=== PATIENT | male | born 1935 | race Caucasian/White ===

== ENCOUNTER 2023-07-29 16:00 | Emergency (ER) | payer MEDICARE ==
[~2023-07-29] VITALS: Ht 170.2 cm; Wt 66.7 kg
[2023-07-29 16:58] LABS: BASOPHILS # (AUTO) 0.02 K/uL (0.00-0.20); BASOPHILS % (AUTO) 0.3 % (0.0-5.0); EOSINOPHILS # (AUTO) 0.17 K/uL (0.00-0.70); EOSINOPHILS % (AUTO) 2.6 % (0.0-8.0); HEMATOCRIT 35.4 % (42-54); IMMATURE GRANULOCYTE ABSOLUTE 0.02 K/uL (0-1); LYMPHOCYTES # (AUTO) 1.3 K/uL (1.0-4.8); LYMPHOCYTES % (AUTO) 20.5 % (21.0-51.0); MEAN CORPUSCULAR HEMOGLOBIN 29.6 pg (27.0-33.0); MEAN CORPUSCULAR HGB CONC 34.2 g/dL (32.0-36.0); MEAN CORPUSCULAR VOLUME 86.6 fL (79-99); MONOCYTES # (AUTO) 0.6 K/uL (0.1-1.0); MONOCYTES % (AUTO) 9.3 % (3.0-13.0); NEUTROPHILS # (AUTO) 4.4 K/uL (1.8-7.7); PLATELET COUNT (AUTO) 157 K/uL (130-400); RED BLOOD CELL COUNT(AUTO) 4.09 MIL/uL (4.50-6.20); RED CELL DISTRIBUTION WIDTH 12.3 % (11.0-15.5); WHITE BLOOD COUNT (AUTO) 6.5 K/uL (4.8-10.8)
[2023-07-29 17:07] LABS: SARS-CoV-2, RNA, NAAT NEGATIVE SARS CoV-2 (NEGATIVE)
[2023-07-29 17:08] LABS: CREATININE 1.2 mg/dL (0.5-1.5); POTASSIUM 3.6 mmol/L (3.5-5.1)
[2023-07-29 17:09] LABS: INFLUENZA TYPE A Negative For Type A (NEGATIVE); INFLUENZA TYPE B Negative For Type B (NEGATIVE)
[2023-07-29 17:18] LABS: ALBUMIN 3.6 g/dL (3.5-5.0); B-TYPE NATRIURETIC PEPTIDE 30 pg/mL (0-100); BILIRUBIN,TOTAL 0.2 mg/dL (0.2-1.0); TOTAL PROTEIN, SERUM 6.8 g/dL (6.0-8.3)
[2023-07-29 17:22] LABS: RAPID GROUP A STREP negative (NEGATIVE)
[2023-07-29] MEDS ORDERED: POTASSIUM BICARB/CIT AC 25 MEQ TABLET.EFF ONE (20:45)
[2023-07-29 20:49] LABS: ABG BASE EXCESS 4.7 mmol/L (-2.0-3.0); ABG HCO3 27.2 mmol/L (21.0-28.0); ABG OXYGEN SATURATION 96.7 % (95.0-99.0); ABG PCO2 34 mmHg (35-48); ABG PH 7.522 (7.35-7.450); CARBON MONOXIDE 0.6; HHb 3.3; PO2, ARTERIAL BG 81.5 mmHg (83.0-108.0); VENT MODE, BG ROOM AIR (ROOM AIR)
[2023-07-29 20:53] LABS: INR 0.96 (0.85-1.15); PROTHROMBIN TIME 11.2 SEC (9.6-11.6)
[2023-07-29 20:55] LABS: PARTIAL THROMBOPLASTIN TIME 28.2 SEC (26.3-35.5)
[2023-07-29] MEDS ORDERED: ACETAMINOPHEN WITH CODEINE 1 TAB TAB PO ONE (21:00)
[2023-07-29] MEDS ORDERED: FUROSEMIDE 40MG VIAL IV ONE (21:00)
[2023-07-29] MEDS ORDERED: POTASSIUM BICARB/CIT AC 25 MEQ TABLET.EFF PO ONE (21:00)
[2023-07-29] MEDS ORDERED: IOHEXOL 350 MG/ML 100ML INFUS..BTL IV ONE (21:55)
[2023-07-29 22:30] VITALS: BP 128/89; PULSE 79; RESP 20; O2SAT 96
[2023-08-07] MEDS ORDERED: HYD25 PO (16:14)
[2023-08-07] MEDS ORDERED: LEVO125T11 PO (16:14)
[2023-08-07] MEDS ORDERED: GUAI600T50 PO (16:14)
[2023-08-07] MEDS ORDERED: PANT40TA54 PO (16:14)
[2023-08-07] MEDS ORDERED: CITA10TA13 PO (16:14)
[2023-08-07] MEDS ORDERED: TRAZ-185 PO (16:14)
[2023-08-07] MEDS ORDERED: GABA600T10 PO (16:14)
[2023-08-07] MEDS ORDERED: FURO40TA5 PO (16:14)
[2023-08-07] MEDS ORDERED: POTA-364 PO (16:14)
== END 2023-07-29 23:27 | disposition home or self-care (01) ==
LOC: EDH 16:00
DX: J84.10 Pulmonary fibrosis, unspecified (principal); I10 Essential (primary) hypertension; Z20.822 Contact with and (suspected) exposure to COVID-19; Z98.890 Other specified postprocedural states; Z79.899 Other long term (current) drug therapy
CPT/HCPCS: 99285; 82435; 82947; 84484; 84132; 84295; 80053; 82803; 83880; 85025; 85378; 85610; 85730; 85018; 87880; 87804 ×2; 83605; 36415; 87635; 71045; 71275; 96374; 93005; 36600; C9803; J1940; Q9967

== ENCOUNTER 2023-08-12 12:39 | Emergency (ER) | payer MEDICARE ==
[~2023-08-12] VITALS: Ht 170.2 cm; Wt 63.5 kg
[~2023-08-12 12:39] MED LIST: CITA10TA13 PO; FURO40TA5 PO; GABA600T10 PO; GUAI600T50 PO; HYD25 PO; LEVO125T11 PO; PANT40TA54 PO; POTA-364 PO; TRAZ-185 PO
[2023-08-12 13:10] VITALS: BP 133/60; PULSE 98; RESP 18; O2SAT 96
== END 2023-08-12 13:37 | disposition home or self-care (01) ==
LOC: EDH 12:39
DX: T83.091A Other mechanical complication of indwelling urethral catheter, initial encounter (principal); I10 Essential (primary) hypertension; Z79.899 Other long term (current) drug therapy; Z98.890 Other specified postprocedural states; Y92.89 Other specified places as the place of occurrence of the external cause
CPT/HCPCS: 99281

== ENCOUNTER 2025-06-04 21:09 | Emergency (ER) | payer MEDICARE ==
[~2025-06-04] VITALS: Ht 172.7 cm; Wt 69.9 kg
[~2025-06-04 21:09] MED LIST changes: +BUDE0.5A3 IH; +CITA-107 PO; -CITA10TA13 PO; +FAMO20TA8 PO; +FURO40TA7 PO; +GABA300T28 PO; -GABA600T10 PO; -GUAI600T50 PO; -HYD25 PO; +LEVO-70 PO; +LEVO125C5 PO; -LEVO125T11 PO; +LISI5TAB21 PO; -PANT40TA54 PO; -POTA-364 PO; +POTA10CA95 PO; +SIME125C PO; +TAMS-55 PO; -TRAZ-185 PO; +VITA1CAP PO; +[UNRECOGNIZED DRUG - CODE] PO; +[UNRECOGNIZED DRUG - CODE] PO; +[UNRECOGNIZED DRUG - CODE] PO
[2025-06-04] MEDS ORDERED: FLUC100T PO (21:22)
[2025-06-04] MEDS ORDERED: CLOT15CR23 TP (21:25)
--- NOTE | 2025-06-04 21:27 | ERN ---
General Chief Complaint: Lower Extremity Pain/Injury Stated Complaint: C/O REDNESS TO LEFT LEG Time Seen by MD: 21:11 Source: patient History of Present Illness Initial Comments 89-year-old male who has a red rash circumferential around his left knee distal thigh proximal leg. He states that he has been wearing a leg brace there for the last two weeks and never took it off. The rash is non painful non swelling but is extremely itchy. Afebrile no fevers no chills no other systemic symptoms. No diabetes Timing/Duration: unsure Severity: moderate Allergies: Coded Allergies: No Known Drug Allergies (Unverified Allergy, Unknown, 05/05/22) Home Meds Active Scripts Levofloxacin (Levofloxacin) 500 Mg Tablet, 1 TAB PO DAILY for 7 Days, #7 TAB 0 Refills Prov:IMELDA MAYO SUPERVISOR RECORDS CHANGE 12/13/24 Furosemide (Lasix 40Mg Tab) 40 Mg Tablet, 20 MG PO DAILY, #60 TAB Prov:IMELDA MAYO SUPERVISOR RECORDS CHANGE 12/13/24 Famotidine (Famotidine) 20 Mg Tablet, 20 MG PO DAILY, #60 TAB Prov:IMELDA MAYO SUPERVISOR RECORDS CHANGE 12/13/24 Budesonide (Budesonide) 0.5 Mg/2 Ml Ampul.neb, 0.5 MG IH BIDRESP, #15 INHALER Prov:BRENTIMELDA SHARIF SUPERVISOR RECORDS CHANGE 12/13/24 Reported Medications Simethicone (Gas-X) 125 Mg Capsule, 1 CAP PO BID for 30 Days, #60 CAP 0 Refills 12/10/24 Vitamin E (Dl,Tocopheryl Acet) (Vitamin E) 450 Mg (1000 Unit) Capsule, 1 CAP PO DAILY for 30 Days, #30 CAP 0 Refills 12/10/24 Lisinopril (Lisinopril) 5 Mg Tablet, 1 TAB PO DAILY for 30 Days, #30 TAB 0 Refills 12/10/24 Furosemide (Furosemide) 40 Mg Tablet, 40 MG PO BID, TAB 12/10/24 Potassium Chloride (Potassium Chloride) 10 Meq Capsule.er, 20 MEQ PO BID, CAP 01/05/24 Activated Charcoal (Charcocaps) 260 Mg Capsule, 260 MG PO DAILY, CAP 01/03/24 Vitamin B Complex (B Complex) 1 Cap Capsule, 1 CAP PO DAILY, CAP 01/03/24 Ascorbic Acid (Vitamin C with Ritu Hips) 1,000 Mg Capsule, 1000 MG PO DAILY, CAP 01/03/24 Tamsulosin HCl (Flomax) 0.4 Mg Cap.er.24h, 0.4 MG PO TID, CAPSULE.DR 01/03/24 Citalopram Hydrobromide (Citalopram HBr) 20 Mg Tablet, 20 MG PO DAILY, TAB 01/03/24 Gabapentin (Gabapentin ER) 300 Mg Tab.er.24h, 300 MG PO TID, TAB 01/03/24 Levothyroxine Sodium (Levothyroxine) 125 Mcg Capsule, 125 MCG PO DAILY, CAP 01/03/24 Past Medical History Past Medical History: Hypertension Medical History Other: RIGHT VENTRICULAR HEART FAILURE Past Surgical History: Other Surgical History Other: KNEE SURGERY ROS Dictation Review of systems is otherwise negative beyond what is in the chief complaint. Physical Exam Skin Comment Left knee distal thigh proximal leg has a circumferential redness with some areas of excoriation. The borders of the rash are sharp with a few petechial areas proximally. No swelling minimal warmth distal circulation intact. MDM The rash appears to be a yeast infection from trapped moist her underneath his knee wrap that he has worn continuously for the last 1-2 weeks. ED Course Vital Signs Date Time Temp Pulse Resp B/P (MAP) Pulse Ox O2 Delivery O2 Flow Rate FiO2 06/04/25 21:12 98.1 73 20 145/81 96 DX & DISP Disposition: Discharge Departure Impression: Primary Impression: Yeast infection of the skin Condition: Stable Scripts Clotrimazole (Clotrimazole) 1 % Cream..g. 1 APPL TP BID for 7 Days, #15 GM 0 Refills apply to affected area(s) Prov: ALEJANDRA BACA MD 06/04/25 Additional Instructions: I believe you have a yeast infection in the skin on your left knee from prolonged trapping of moist her against the skin moisture wearing her knee brace continuously. I am prescribing a cream to clear the yeast infection. It should clear up in the next week or so if it does not please see your primary care physician. If the area becomes red and you see red streaks going up her arm and your concerned about a bacterial infection please come back to the emergency room. Referrals: SHMUEL OCONNELL (PCP) ALEJANDRA BACA MD Jun 04, 2025 21:27
[2025-06-04 21:58] VITALS: BP 139/76; PULSE 79; RESP 18; TEMP 98.2; O2SAT 98
== END 2025-06-04 22:02 | disposition home or self-care (01) ==
LOC: EDH 21:09
DX: B37.2 Candidiasis of skin and nail (principal); I11.0 Hypertensive heart disease with heart failure; I50.810 Right heart failure, unspecified; Z79.890 Hormone replacement therapy; Z79.899 Other long term (current) drug therapy
CPT/HCPCS: 99282

== ENCOUNTER 2025-06-07 22:24 | Emergency (ER) | payer MEDICARE ==
[~2025-06-07] VITALS: Ht 170.2 cm; Wt 74.8 kg
[~2025-06-07 22:24] MED LIST changes: +CLOT15CR23 TP
--- NOTE | 2025-06-07 22:30 | NUR ---
UA CUP PROVIDED
[2025-06-08 00:19] LABS: CREATININE 1.2 mg/dL (0.5-1.3); GLOMERULAR FILTR. RATE CALC 58.0 mL/min (>90); GLUCOSE,RANDOM 117.0 mg/dL (70-105); SODIUM SERUM 137.0 mmol/L (136-145); UREA NITROGEN, BLOOD 22.0 mg/dL (7-18)
[2025-06-08 00:21] LABS: IMMATURE GRANULOCYTE ABSOLUTE 0.03 K/uL (0-1); NUCLEATED RED BLOOD CELLS 0.0 % (0.0-0.19); PLATELET COUNT (AUTO) 177 K/uL (130-400); RED BLOOD CELL COUNT(AUTO) 4.06 MIL/uL (4.50-6.20); RED CELL DISTRIBUTION WIDTH 13.2 % (11.0-15.5); WHITE BLOOD COUNT (AUTO) 8.4 K/uL (4.8-10.8)
--- NOTE | 2025-06-08 00:23 | ERN ---
ED Note History of Present Illness Stated Complaint: RASH TO GROIN Chief Complaint: Skin Rash/Abscess Time Seen by MD: 22:31 Time Seen by Midlevel: 22:31 Dictation: The patient is a 89-year-old male with a history of hypertension who presents to the emergency department with complaints of rash to groin area and left knee. Patient reports he was this past week for similar symptoms and was diagnosed with a fungal infection and started on clotrimazole topical. Allergies: Coded Allergies: No Known Drug Allergies (Unverified Allergy, Unknown, 05/05/22) Home Meds Active Scripts Clotrimazole (Clotrimazole) 1 % Cream..g., 1 APPL TP BID for 7 Days, #15 GM 0 Refills apply to affected area(s) Prov:ALEJANDRA BACA MD 06/04/25 Levofloxacin (Levofloxacin) 500 Mg Tablet, 1 TAB PO DAILY for 7 Days, #7 TAB 0 Refills Prov:IMELDA MAYO FARM INSTRUCTOR 12/13/24 Furosemide (Lasix 40Mg Tab) 40 Mg Tablet, 20 MG PO DAILY, #60 TAB Prov:IMELDA MAYO FARM INSTRUCTOR 12/13/24 Famotidine (Famotidine) 20 Mg Tablet, 20 MG PO DAILY, #60 TAB Prov:IMELDA MAYO FARM INSTRUCTOR 12/13/24 Budesonide (Budesonide) 0.5 Mg/2 Ml Ampul.neb, 0.5 MG IH BIDRESP, #15 INHALER Prov:IMELDA MAYO APRN 12/13/24 Reported Medications Simethicone (Gas-X) 125 Mg Capsule, 1 CAP PO BID for 30 Days, #60 CAP 0 Refills 12/10/24 Vitamin E (Dl,Tocopheryl Acet) (Vitamin E) 450 Mg (1000 Unit) Capsule, 1 CAP PO DAILY for 30 Days, #30 CAP 0 Refills 12/10/24 Lisinopril (Lisinopril) 5 Mg Tablet, 1 TAB PO DAILY for 30 Days, #30 TAB 0 Refills 12/10/24 Furosemide (Furosemide) 40 Mg Tablet, 40 MG PO BID, TAB 12/10/24 Potassium Chloride (Potassium Chloride) 10 Meq Capsule.er, 20 MEQ PO BID, CAP 01/05/24 Activated Charcoal (Charcocaps) 260 Mg Capsule, 260 MG PO DAILY, CAP 01/03/24 Vitamin B Complex (B Complex) 1 Cap Capsule, 1 CAP PO DAILY, CAP 01/03/24 Ascorbic Acid (Vitamin C with Ritu Hips) 1,000 Mg Capsule, 1000 MG PO DAILY, CAP 01/03/24 Tamsulosin HCl (Flomax) 0.4 Mg Cap.er.24h, 0.4 MG PO TID, CAPSULE. 01/03/24 Citalopram Hydrobromide (Citalopram HBr) 20 Mg Tablet, 20 MG PO DAILY, TAB 01/03/24 Gabapentin (Gabapentin ER) 300 Mg Tab.er.24h, 300 MG PO TID, TAB 01/03/24 Levothyroxine Sodium (Levothyroxine) 125 Mcg Capsule, 125 MCG PO DAILY, CAP 01/03/24 Past Medical History Past Medical History: Hypertension Additional Past Medical Hx: RIGHT VENTRICULAR HEART FAILURE Surgical History: Other Surgical History Other: KNEE SURGERY RN Note Reviewed/Agreed w/PFSH: Yes Review of System Dictation Constitutional: Negative for fever,chills, and weight loss Eyes: Negative for injury, pain,redness, and discharge ENT: Negative for injury,pain or swelling Cardiovascular: Negative for chest pain, palpitations, and edema Respiratory: Negative for shortness of breath, cough, and wheezing, Abdomen/GI: Negative for abdominal pain, nausea, vomiting, diarrhea, and constipation Back: Negative for injury and pain : Negative for injury, bleeding and discharge MS/Extremity: Negative for injury and deformity Skin: Negative for discoloration positive for rash Neuro: Negative for headache, weakness, numbness, tingling, and seizure Psych: Negative for suicide ideation, homicidal ideation, and hallucinations Initial Vital Sign VS Vital Signs Date Time Temp Pulse Resp B/P (MAP) Pulse Ox O2 Delivery O2 Flow Rate FiO2 06/07/25 22:26 98.2 98 20 166/90 96 Room Air Physical Exam Dictation Vital Signs reviewed General Appearance: Alert, oriented x 3, no acute distress, well developed, nourished. Head and Face: non-traumatic. Eyes: PERRL, pink conjunctivas, eyelid no trauma, anterior chamber with arcus senilis. Ears: Pinnas intact and no signs of trauma or erythema ear canals clear and no discharge TM no erythema Nose: No discharge, no bleeding. Oropharynx: Mouth normal, tongue pink. pharynx clear,no erythema, tonsils no exudates, no abscesses noted, mucous membrane moist Neck: Supple, non-tender, no thyromegaly, no masses, no JVD, no bruits Breast:Deferred Chest:No tenderness, no crepitus, no paradoxical movement, no retractions Lungs:Clear, well-ventilated, symmetric, no rales, no wheezing, no rhonchi, no stridor, good breath sounds bilaterally Heart: Regular rate, regular rhythm, no murmur, no gallops Vascular: no peripheral edema, Abdomen: Soft, positive bowel sounds, nondistended, no guarding, nontender, no rebound, no masses no hepatomegaly, no splenomegaly, no Cannon's sign, no hernias. Rectal: Deferred Genital: Erythema and tenderness to scrotum, groin area no drainage, Neurological: Normal speech, motor function intact, sensory function intact Musculoskeletal: Neck nontender, full range of motion, back nontender, full range of motion, Extremities: nontender, full range of motion left knee with erythema and patchy dry scabbing, no bleeding, no drainage Skin: Color pink, dry, no turgor, no rash, no lacerations, no abrasions, no contusions. Lymphatic: Deferred Results (Laboratory/Radiology) Laboratory/Radiology Laboratory Tests Test 06/07/25 23:57 White Blood Count 8.4 K/uL (4.8-10.8) Red Blood Count 4.06 MIL/uL (4.50-6.20) L Hemoglobin 12.6 g/dL (14.0-18.0) L Hematocrit 37.7 % (42-54) L Mean Corpuscular Volume 92.9 fL (79-99) Mean Corpuscular Hemoglobin 31.0 pg (27.0-33.0) Mean Corpuscular Hemoglobin Concent 33.4 g/dL (32.0-36.0) Red Cell Distribution Width 13.2 % (11.0-15.5) Platelet Count 177 K/uL (130-400) Mean Platelet Volume 10.9 fL (7.5-10.5) H Immature Granulocyte % (Auto) 0.4 % (0-1) Neutrophils (%) (Auto) 77.2 % (40.0-77.0) H Lymphocytes (%) (Auto) 9.9 % (21.0-51.0) L Monocytes (%) (Auto) 11.4 % (3.0-13.0) Eosinophils (%) (Auto) 1.0 % (0.0-8.0) Basophils (%) (Auto) 0.1 % (0.0-5.0) Neutrophils # (Auto) 6.5 K/uL (1.8-7.7) Lymphocytes # (Auto) 0.8 K/uL (1.0-4.8) L Monocytes # (Auto) 1.0 K/uL (0.1-1.0) Eosinophils # (Auto) 0.08 K/uL (0.00-0.70) Basophils # (Auto) 0.01 K/uL (0.00-0.20) Absolute Immature Granulocyte (auto 0.03 K/uL (0-1) Nucleated Red Blood Cells 0.0 % (0.0-0.19) Sodium Level 137 mmol/L (136-145) Potassium Level 5.3 mmol/L (3.5-5.1) H Chloride Level 103 mmol/L (101-111) Carbon Dioxide Level 31 mmol/L (21-32) Blood Urea Nitrogen 22 mg/dL (7-18) H Creatinine 1.2 mg/dL (0.5-1.3) Glomerular Filtration Rate Calc 58 mL/min (>90) Random Glucose 117 mg/dL (70-105) H Total Calcium 9.3 mg/dL (8.5-10.1) Labs Reviewed?: Yes EKG: (+) rhythm (Sinus rhythm) EKG Comment: Date:06/08/2025 Time:0110 Ventricular rate:94 WV interval:134 QRS duration:82 QT/QTc:375/469 EKG interpretation: Sinus rhythm Reviewed by ED Attending STEMI ED Course ED Course Orders Procedure Category Date Status Time Cbc With Differential LAB 06/07/25 In Process 23:29 Basic Metabolic Panel LAB 06/07/25 Complete 23:29 12 Lead Ekg Tracing- EKG 06/08/25 Complete Technical 01:08 Na Zircon PHA 06/08/25 In Process Cyclosil-Lokelma 10g 01:30 Current Medications Medications (Trade) Dose Ordered Sig/Dandre Route PRN Reason Start Time Stop Time Status Last Admin Dose Admin Sodium Zirconium Cyclosilicate (Lokelma 10gm Powder) 10 gm ONCE ONCE PO 06/08/25 01:30 06/08/25 01:31 Vital Signs Date Time Temp Pulse Resp B/P (MAP) Pulse Ox O2 Delivery O2 Flow Rate FiO2 06/07/25 22:26 98.2 98 20 166/90 96 Room Air Medical Decision Making MDM The patient is a 89-year-old male with a history of hypertension who presents to the emergency department with complaints of rash to groin area and left knee. Patient reports he was this past week for similar symptoms and was diagnosed with a fungal infection and started on clotrimazole topical. CBC showed no leukocytosis, mild normocytic anemia, chemistry showed mild hypokalemia, creatinine of 1.2. On physical exam patient appears to have a fungal infection to his left knee which he had last week and has now progressed to his groin area. Patient reports that his left knee is getting better. We will discharge patient on antifungal p.o.. Patient instructed to follow up with PCP. Patient does wear brief and has not incontinence which increases moisture. Patient educated on proper hygiene and avoiding moisture to that area. On physical exam patient is in no acute distress. Nontoxic appearance. Patient was evaluated by Dr. Lambert who reports that his leg fungal infection is improving. Differential diagnosis: Cellulitis, abrasion, fungal infection Need for hospitalization: Patient does not meet criteria for hospitalization. There are no social concerns with this patient. DX & DISP Disposition: Discharge Departure Impression: Primary Impression: Yeast infection of the skin Additional Impression: Hyperkalemia Condition: Stable Scripts Fluconazole (Fluconazole) 200 Mg Tablet 1 TAB PO QWEEK for 14 Days, #2 TAB 0 Refills Prov: LADARIUS DICKENS PALLIATIVE CARE NURSE 06/08/25 Additional Instructions: Please follow up with your primary doctor in 1-2 days. They will need to monitor your potassium. Take your medications as prescribed. Avoid any excessive moisture to the area. Keep it clean and dry. FOLLOW-UP WITH PRIMARY CARE PROVIDER IN 1 TO 2 DAYS. TAKE MEDICATIONS DIRECTED HERE IN THE EMERGENCY ROOM. OKAY TO CONTINUE HOME MEDICATIONS UNLESS OTHERWISE DISCUSSED DURING YOUR VISIT IN THE EMERGENCY ROOM TODAY. RETURN TO YOUR NEAREST EMERGENCY ROOM IF SYMPTOMS WORSEN OR IF THERE IS NO IMPROVEMENT. CALL 911 IF YOU NEED IMMEDIATE ASSISTANCE. TAKE TYLENOL [id number] NEEDED AND IF NO CONTRAINDICATIONS ARE PRESENT. INCREASE ORAL HYDRATION. A WOUND CULTURE OR URINE CULTURE WAS ORDERED HERE IN THE EMERGENCY ROOM DEPARTMENT PLEASE FOLLOW-UP WITH PRIMARY CARE PROVIDER AND ADVISE THEM TO GET REPEAT PORTS FROM OUR FACILITY. IF YOU HAD ANY JOHNATHAN WRAP/SPLINTS THAT WERE APPLIED HERE, PLEASE DO NOT REMOVE THEM UNTIL YOU SEE YOUR PRIMARY CARE OR SPECIALTY. Referrals: SHMUEL OCONNELL (PCP) Time of Disposition: 01:30 I have examined patient, & reviewed all documents, & agreed W/ the Diagnosis, and Plan LADARIUS DICKENS PALLIATIVE CARE NURSE Jun 08, 2025 00:23
--- NOTE | 2025-06-08 01:14 | EKG ---
[facility] Test Date: 2025-06-08 Test Time: 01:10:30 Pat Name: EFREN FISHER Department: [facility] Room: Gender: M Music Library Assistant: [id number] Requested By: LADARIUS DICKENS Order Number: [id number] Reading MD: Arya Mitchell Measurements Intervals [place] Rate: 94 P: 36 MI: 134 QRS: -25 QRSD: 82 T: 60 QT: 375 QTc: 469 Interpretive Statements Sinus rhythm Atrial premature complex Compared to ECG 12/10/2024 08:40:34 Atrial premature complex(es) now present Ventricular premature complex(es) no longer present Left-axis deviation no longer present Electronically Signed On 06-08-2025 11:08:57 CDT by Arya Mitchell Please click the below link to view image of tracing.
--- NOTE | 2025-06-08 01:24 | NUR ---
PT CALLED, NO ANSWER
[2025-06-08] MEDS: NA ZIRCON CYCLOSIL(LOKELMA 10GM) PO ONE (01:36)
[2025-06-08] MEDS ORDERED: FLUC200T96 PO (01:45)
[2025-06-08 01:52] VITALS: BP 160/94; PULSE 90; RESP 18; TEMP 98.2; O2SAT 97
== END 2025-06-08 02:07 | disposition home or self-care (01) ==
LOC: EDH 22:24
DX: B37.2 Candidiasis of skin and nail (principal); E87.5 Hyperkalemia; I11.0 Hypertensive heart disease with heart failure; I50.810 Right heart failure, unspecified; Z79.899 Other long term (current) drug therapy
CPT/HCPCS: 36415; 80048; 85025; 93005; 99284

== ENCOUNTER 2025-06-11 10:10 | Emergency (ER) | payer MEDICARE ==
[~2025-06-11] VITALS: Ht 165.1 cm; Wt 68.3 kg
[~2025-06-11 10:10] MED LIST changes: +FLUC200T96 PO
[2025-06-11 10:12] VITALS: BP 152/91; PULSE 88; RESP 18; TEMP 97.6
--- NOTE | 2025-06-11 10:22 | ERN ---
ED Note History of Present Illness Stated Complaint: RASH Chief Complaint: Skin Rash/Abscess Time Seen by MD: 10:12 Dictation: PATIENT IS AN 89-YEAR-OLD MALE HERE WITH COMPLAINTS OF A RASH HE HAS HAD FOR THE LAST SEVERAL WEEKS. NO FEVER NO CHILLS. THE RASH IS ON HIS LEFT ANTERIOR KNEE IN HIS GROIN. HE STATES THE ONE TO HIS KNEE STARTED AFTER HE WAS USE NECK COMPRESSION DEVICE TO HIS KNEE SEVERAL WEEKS AGO. THE KNEE IS ERYTHEMATOUS IN VERY STAGES OF FEELING WITH SOME EXCORIATION NOTED. HE HAS ALREADY BEEN TO THE EMERGENCY ROOM TWICE AND WAS TREATED FOR A FUNGAL INFECTION HOWEVER STATES HE IS NOT GETTING RELIEF. HE DENIES FEVER CHILLS STATES HE IS NOT A DIABETIC. THE RASH IS PAINLESS I HAD ENCOURAGED PATIENT TO FOLLOW UP WITH HIS PRIMARY CARE DOCTOR AFTER BEING DISCHARG[place] [facility] [place] SINCE IT WOULD BE 3RD VISIT TO THE EMERGENCY ROOM. Allergies: Coded Allergies: No Known Drug Allergies (Unverified Allergy, Unknown, 05/05/22) Home Meds Active Scripts Fluconazole (Fluconazole) 200 Mg Tablet, 1 TAB PO QWEEK for 14 Days, #2 TAB 0 Refills Prov:LADARIUS DICKENS CUSTOMER TRAINING SPECIALIST 06/08/25 Clotrimazole (Clotrimazole) 1 % Cream..g., 1 APPL TP BID for 7 Days, #15 GM 0 Refills apply to affected area(s) Prov:ALEJANDRA BACA MD 06/04/25 Levofloxacin (Levofloxacin) 500 Mg Tablet, 1 TAB PO DAILY for 7 Days, #7 TAB 0 Refills Prov:IMELDA MAYO PERSONNEL CLERK 12/13/24 Furosemide (Lasix 40Mg Tab) 40 Mg Tablet, 20 MG PO DAILY, #60 TAB Prov:IMELDA MAYO PERSONNEL CLERK 12/13/24 Famotidine (Famotidine) 20 Mg Tablet, 20 MG PO DAILY, #60 TAB Prov:IMELDA MAYO PERSONNEL CLERK 12/13/24 Budesonide (Budesonide) 0.5 Mg/2 Ml Ampul.neb, 0.5 MG IH BIDRESP, #15 INHALER Prov:IMELDA MAYO APRN 12/13/24 Reported Medications Simethicone (Gas-X) 125 Mg Capsule, 1 CAP PO BID for 30 Days, #60 CAP 0 Refills 12/10/24 Vitamin E (Dl,Tocopheryl Acet) (Vitamin E) 450 Mg (1000 Unit) Capsule, 1 CAP PO DAILY for 30 Days, #30 CAP 0 Refills 12/10/24 Lisinopril (Lisinopril) 5 Mg Tablet, 1 TAB PO DAILY for 30 Days, #30 TAB 0 Refills 12/10/24 Furosemide (Furosemide) 40 Mg Tablet, 40 MG PO BID, TAB 12/10/24 Potassium Chloride (Potassium Chloride) 10 Meq Capsule.er, 20 MEQ PO BID, CAP 01/05/24 Activated Charcoal (Charcocaps) 260 Mg Capsule, 260 MG PO DAILY, CAP 01/03/24 Vitamin B Complex (B Complex) 1 Cap Capsule, 1 CAP PO DAILY, CAP 01/03/24 Ascorbic Acid (Vitamin C with Ritu Hips) 1,000 Mg Capsule, 1000 MG PO DAILY, CAP 01/03/24 Tamsulosin HCl (Flomax) 0.4 Mg Cap.er.24h, 0.4 MG PO TID, CAPSULE.DR 01/03/24 Citalopram Hydrobromide (Citalopram HBr) 20 Mg Tablet, 20 MG PO DAILY, TAB 01/03/24 Gabapentin (Gabapentin ER) 300 Mg Tab.er.24h, 300 MG PO TID, TAB 01/03/24 Levothyroxine Sodium (Levothyroxine) 125 Mcg Capsule, 125 MCG PO DAILY, CAP 01/03/24 Past Medical History Past Medical History: Hypertension Additional Past Medical Hx: RIGHT VENTRICULAR HEART FAILURE Surgical History: Other Surgical History Other: KNEE SURGERY RN Note Reviewed/Agreed w/PFSH: Yes Review of System Dictation CONSTITUTIONAL: NEGATIVE EXCEPT FOR HPI HEAD/FACE: NEGATIVE EXCEPT FOR HPI EENT: NEGATIVE EXCEPT FOR HPI RESPIRATORY: NEGATIVE EXCEPT FOR HPI GASTROINTESTINAL/ABDOMINAL: NEGATIVE EXCEPT FOR HPI GENITOURINARY: NEGATIVE EXCEPT FOR HPI MUSCULOSKELETAL: NEGATIVE EXCEPT FOR HPI INTEGUMENTARY: NEGATIVE EXCEPT FOR HPI RASH TO GROIN AND LEFT KNEE NEUROLOGICAL/PSYCH: NEGATIVE EXCEPT FOR HPI HEMATOLOGIC/LYMPHATIC: NEGATIVE EXCEPT FOR HPI ALL SYSTEMS NEGATIVE, EXCEPT NOTED ABOVE. 13 POINT REVIEW OF SYSTEMS ASSESSED AND ALL NEGATIVE EXCEPT FOR ABOVE. Initial Vital Sign VS Vital Signs Date Time Temp Pulse Resp B/P (MAP) Pulse Ox O2 Delivery O2 Flow Rate FiO2 06/11/25 10:12 97.5 88 18 152/91 98 Room Air 0 Physical Exam Dictation VITAL SIGNS REVIEWED GENERAL APPEARANCE: ALERT, ORIENTED X 3, NO ACUTE DISTRESS, WELL DEVELOPED, NOURISHED. NO PAIN HEAD AND FACE: NON-TRAUMATIC. EYES: PERRL, PINK CONJUNCTIVAS, EYELID NO TRAUMA, ANTERIOR CHAMBER WITH ARCUS SENILIS. EARS: PINNAS INTACT AND NO SIGNS OF TRAUMA OR ERYTHEMA EAR CANALS CLEAR AND NO DISCHARGE TM NO ERYTHEMA NOSE: NO DISCHARGE, NO BLEEDING. OROPHARYNX: MOUTH NORMAL, TONGUE PINK, PHARYNX CLEAR,NO ERYTHEMA, TONSILS NO EXUDATES, NO ABSCESSES NOTED, MUCOUS MEMBRANE MOIST NECK: SUPPLE, NON-TENDER, NO THYROMEGALY, NO MASSES, NO JVD, NO BRUITS BREAST:DEFERRED CHEST:NO TENDERNESS, NO CREPITUS, NO PARADOXICAL MOVEMENT, NO RETRACTIONS LUNGS:CLEAR, WELL-VENTILATED, SYMMETRIC, NO RALES, NO WHEEZING, NO RHONCHI, NO STRIDOR, GOOD BREATH SOUNDS BILATERALLY HEART: REGULAR RATE, REGULAR RHYTHM, NO MURMUR, NO GALLOPS VASCULAR: NO PERIPHERAL EDEMA, ABDOMEN: SOFT, POSITIVE BOWEL SOUNDS, NONDISTENDED, NO GUARDING, NONTENDER, NO REBOUND, NO MASSES NO HEPATOMEGALY, NO SPLENOMEGALY, NO MCDONOUGH'S S IGN, NO HERNIAS. RECTAL: DEFERRED GENITAL: SCROTUM WITH A EXCORIATION AND CLEAR DRAINAGE. PAINFUL NEUROLOGICAL: NORMAL SPEECH, MOTOR FUNCTION INTACT, SENSORY FUNCTION INTACT MUSCULOSKELETAL: NECK NONTENDER, FULL RANGE OF MOTION, BACK NONTENDER, FULL RANGE OF MOTION, EXTREMITIES: RIGHT KNEE FROM DISTAL THIGH DOWN TO MID TIBIAL AREA WITH ERYTHEMA EXCORIATION. NONTENDER DOES NOT HAVE ANY PUSTULES PAINLESS SKIN: COLOR PINK, DRY, NO TURGOR, NO RASH, NO LACERATIONS, NO ABRASIONS, NO CONTUSIONS. LYMPHATIC: DEFERRED Results (Laboratory/Radiology) Laboratory/Radiology Laboratory Tests Test 06/11/25 10:30 White Blood Count 6.6 K/uL (4.8-10.8) Red Blood Count 4.09 MIL/uL (4.50-6.20) L Hemoglobin 12.6 g/dL (14.0-18.0) L Hematocrit 37.9 % (42-54) L Mean Corpuscular Volume 92.7 fL (79-99) Mean Corpuscular Hemoglobin 30.8 pg (27.0-33.0) Mean Corpuscular Hemoglobin Concent 33.2 g/dL (32.0-36.0) Red Cell Distribution Width 13.0 % (11.0-15.5) Platelet Count 185 K/uL (130-400) Mean Platelet Volume 10.4 fL (7.5-10.5) Immature Granulocyte % (Auto) 0.2 % (0-1) Neutrophils (%) (Auto) 73.5 % (40.0-77.0) Lymphocytes (%) (Auto) 16.5 % (21.0-51.0) L Monocytes (%) (Auto) 7.3 % (3.0-13.0) Eosinophils (%) (Auto) 2.3 % (0.0-8.0) Basophils (%) (Auto) 0.2 % (0.0-5.0) Neutrophils # (Auto) 4.9 K/uL (1.8-7.7) Lymphocytes # (Auto) 1.1 K/uL (1.0-4.8) Monocytes # (Auto) 0.5 K/uL (0.1-1.0) Eosinophils # (Auto) 0.15 K/uL (0.00-0.70) Basophils # (Auto) 0.01 K/uL (0.00-0.20) Absolute Immature Granulocyte (auto 0.01 K/uL (0-1) Nucleated Red Blood Cells 0.0 % (0.0-0.19) Sodium Level 139 mmol/L (136-145) Potassium Level 4.3 mmol/L (3.5-5.1) Chloride Level 102 mmol/L (101-111) Carbon Dioxide Level 31 mmol/L (21-32) Blood Urea Nitrogen 24 mg/dL (7-18) H Creatinine 1.1 mg/dL (0.5-1.3) Glomerular Filtration Rate Calc 64 mL/min (>90) Random Glucose 170 mg/dL (70-105) H Total Calcium 9.6 mg/dL (8.5-10.1) Labs Reviewed?: Yes ED Course ED Course Orders Procedure Category Date Status Time Cbc With Differential LAB 06/11/25 Complete 10:19 Basic Metabolic Panel LAB 06/11/25 Complete 10:19 Vital Signs Date Time Temp Pulse Resp B/P (MAP) Pulse Ox O2 Delivery O2 Flow Rate FiO2 06/11/25 10:12 97.5 88 18 152/91 98 Room Air 0 1125/SPOKE WITH PATIENT IN HIS ON THE TELEPHONE. HE LEFT AND SAID HE WAS H A AN APPOINTMENT WITH HIS PRIMARY CARE DOCTOR, THIS AFTERNOON. Medical Decision Making MDM MEDICAL DISCHARGE MAKING BASED ON PHYSICAL EXAMINATION AND LABS TO INCLUDE CBC AND BMP. PATIENT HAS A NORMAL WBCS GLUCOSE IS 170 AND PATIENT IS LIKELY A DIABETIC HOWEVER HE IS UNAWARE OF THIS. PATIENT LEFT WITHOUT PROPER DISCHARGE IN HIS GOING TO FOLLOW UP WITH HIS DOCTOR THIS AFTERNOON. DX & DISP Disposition: Discharge Departure Impression: Primary Impression: Dermatitis Additional Impression: Candidiasis of scrotum Condition: Stable Additional Instructions: FOLLOW-UP WITH PRIMARY CARE PROVIDER IN 1 TO 2 DAYS. TAKE MEDICATIONS DIRECTED HERE IN THE EMERGENCY ROOM. OKAY TO CONTINUE HOME MEDICATIONS UNLESS OTHERWISE DISCUSSED DURING YOUR VISIT IN THE EMERGENCY ROOM TODAY. RETURN TO YOUR NEAREST EMERGENCY ROOM IF SYMPTOMS WORSEN OR IF THERE IS NO IMPROVEMENT. CALL 911 IF YOU NEED IMMEDIATE ASSISTANCE. TAKE TYLENOL OR MOTRIN O [id number] NEEDED AND IF NO CONTRAINDICATIONS ARE PRESENT. INCREASE ORAL HYDRATION. A WOUND CULTURE OR URINE CULTURE WAS ORDERED HERE IN THE EMERGENCY ROOM DEPARTMENT PLEASE FOLLOW-UP WITH PRIMARY CARE PROVIDER AND ADVISE THEM TO GET REPEAT PORTS FROM OUR FACILITY. IF YOU HAD ANY JOHNATHAN WRAP/SPLINTS THAT WERE APPLIED HERE, PLEASE DO NOT REMOVE THEM UNTIL YOU SEE YOUR PRIMARY CARE OR SPECIALTY. KEEP YOUR APPOINTMENT WITH YOUR PRIMARY CARE DOCTOR. CONTINUE MEDICATIONS PRESCRIBED IN THE EMERGENCY ROOM ON YOUR LAST TWO VISITS. STRONGLY RECOMMEND A REFERRAL TO DERMATOLOGY FOR MANAGEMENT Referrals: SHMUEL OCONNELL (PCP) I have reviewed the case, and I agree with, Diagnosis and Plan SAIMA MEADOWS NP Jun 11, 2025 10:22
[2025-06-11 10:46] LABS: IMMATURE GRANULOCYTE ABSOLUTE 0.01 K/uL (0-1); NUCLEATED RED BLOOD CELLS 0.0 % (0.0-0.19); PLATELET COUNT (AUTO) 185 K/uL (130-400); RED BLOOD CELL COUNT(AUTO) 4.09 MIL/uL (4.50-6.20); RED CELL DISTRIBUTION WIDTH 13.0 % (11.0-15.5); WHITE BLOOD COUNT (AUTO) 6.6 K/uL (4.8-10.8)
[2025-06-11 10:54] LABS: CREATININE 1.1 mg/dL (0.5-1.3); GLOMERULAR FILTR. RATE CALC 64.0 mL/min (>90); GLUCOSE,RANDOM 170.0 mg/dL (70-105); SODIUM SERUM 139.0 mmol/L (136-145); UREA NITROGEN, BLOOD 24.0 mg/dL (7-18)
--- NOTE | 2025-06-11 11:24 | NUR ---
PT STATED HE WOULD SEE HIS PRIMARY MD, DR HERZOG
== END 2025-06-11 11:31 | disposition left against medical advice (07) ==
LOC: EDH 10:10
DX: L30.9 Dermatitis, unspecified (principal); B37.49 Other urogenital candidiasis; I11.0 Hypertensive heart disease with heart failure; I50.810 Right heart failure, unspecified; Z79.890 Hormone replacement therapy; Z79.899 Other long term (current) drug therapy
CPT/HCPCS: 36415; 80048; 85025; 99283